=== PATIENT | female | born 1935 ===

== ENCOUNTER 2020-11-02 15:05 | Outpatient (NON) | payer MEDICARE, SELFPAY ==
[2020-11-02 15:21] LABS: Hematocrit 28.4 % (35.0-42.0); Hemoglobin 8.4 g/dL (11.7-13.8); Mean Corpuscular HGB Conc 29.6 g/dL (32.0-36.0); Mean Corpuscular Hemoglobin 28.1 pg (27.0-31.0); Mean Platelet Volume 12.1 fl (9.2-11.8); Platelet Count Result 201 K/mm3 (150-420); Red Blood Count 2.99 M/mm3 (4.20-5.40); Red Cell Distribution Width 15.7 % (11.6-14.4); White Blood Count 4.1 K/mm3 (4.8-10.8)
[2020-11-02 18:32] LABS: Eosinophils Absolute Manual 0.04 K/mm3 (0.02-0.5); Eosinophils Percent Manual 1 % (1-6); Lymphocytes Absolute Manual 1.02 K/mm3 (1.1-4.5); Lymphocytes Percent Manual 25 % (18-44); Monocytes Absolute Manual 0.98 K/mm3 (0.1-0.90); Monocytes Percent Manual 24 % (3-9); Neutrophils Percent Manual 50 % (46-73); Total Cells Counted 100
[2020-11-02 18:33] LABS: Anisocytosis 2+ (NORMAL); Hypochromasia 2+ (NORMAL); Microcytosis 2+ (NORMAL)
[2020-11-02 18:35] LABS: Platelet Estimate Adequate (Adequate)
== END 2020-11-02 15:06 ==
PROVIDERS: PCP Internal Medicine; Visit Provider Internal Medicine
DX: K92.2 Gastrointestinal hemorrhage, unspecified (principal)
CPT/HCPCS: 36415; 85025